=== PATIENT | female | born 1935 | race Caucasian/White ===

== ENCOUNTER 2016-10-09 07:35 | Emergency (ER) | payer OTHER ==
[2016-10-09 07:57] VITALS: BP 179/108; BMI 26.9
--- NOTE | 2016-10-09 08:34 | DR.GENAD ---
HPI - PCP Primary Care Physician: LEIGH ANN GALEANO - Complaint/Symptoms Chief Complaint:: PATIENT STATED SHE HAS BEEN HURTING IN HER RIGHT GROIN AREA FOR 2 WEEKS. HAS SEEN HER DOCTOR YESTERDAY AND HAS A OUT PATIENT SCAN ORDER FOR THIS AFTERNOON. - Nurses notes reviewed Nurses Notes Review: Yes - Source History Provided: Patient, Family Member - Mode of Arrival Mode of Arrival: Ambulatory - Timing Onset of Chief Complaint: 09/25/16 Came on: Gradually - Duration How lon Duration: Days - Severity Severity: Moderate <RODRIGO BROWN - Last Filed: 10/09/16 08:31> - Location Location: RLQ - Modifying Factors Worsens:: movement - Associated Signs and Symptoms Associated Signs and Symptoms: none <LUIS STALLINGS - Last Filed: 10/09/16 13:43> PMH - PMH Past Medical History: Yes Past Medical History: Asthma, Hypertension Past Surgical History: Yes Surgical History: Angioplasty/Stents, Appendectomy, Cholecystectomy, EYE SURGEON Surgery , Ortho Surgery, Tonsillectomy - Family History History of Family Medical Conditions: No - Social History Does patient currently use any type of tobacco product: No Have you used tobacco products in the last 12 months: No Type of Tobacco Use: None Does any household member use tobacco: No Alcohol Use: None Do you use any recreational Drugs:: No Lives With: Alone Lives Where: Home - infectious screening In the last 2 months have you had wt loss of >10#?: NO Have you had fever, night sweats or hemotysis?: No Have you traveled outside the country in the last 6 months?: No Isolation: Standard <RODRIGO BROWN - Last Filed: 10/09/16 08:31> ROS - Review of Systems Constitutional: No Symptoms Reported Eyes: No Symptoms Reported ENTM: No Symptoms Reported Respiratoy: No Symptoms Reported Cardiovascular: No Symptoms Reported Gastrointestinal/Abdominal: Abdominal Pain (RLQ) Genitourinary: No Symptoms Reported Neurological: No Symptoms Reported Musculoskeletal: No Symptoms Reported Integumentary: No Symptoms Reported Hematologic/Lymphatic: No Symptoms Reported Endocrine: No Symptoms Reported Psychiatric: Depression <LUIS STALLINGS - Last Filed: 10/09/16 13:43> PE - General Limitations: No Limitations General Appearance: Alert, In No Apparent Distress - Head Head Exam: Normal Inspection - Eyes Eye exam: Normal Appearance, EOMI. negative: Scleral Icterus, Conjunctival Injection - ENT ENT Exam: Normal Exam, Normal Oropharynx External Ear Exam: Normal External Inspection Nose Exam: Normal Nose Exam Mouth Exam: Normal Inspection Throat Exam: Normal Inspection - Neck Neck Exam: Normal Inspection, Full ROM, Trachea Midline - Chest Chest Inspection: Normal Inspection - Respiratory Respiratory Exam: Normal Lung Sounds Bilat. negative: Accessory Muscle Use, Prolonged Expiratory Phase Respiratory Exam: Bilateral Clear to Auscultation - Cardiovascular Cardiovascular Exam: Tachycardia - Abdominal Exam Abdominal Exam: Normal Inspection, Normal Bowel Sounds, Soft. negative: Distention, Tenderness, Guarding Abdominal Tenderness: RLQ - Extremities Extremities Exam: Normal Inspection, Full ROM. negative: Tenderness - Back Back Exam: Normal Inspection - Neurologic Neurological Exam: Alert, Oriented X3, CN II-XII Intact - Psychiatric Psychiatric Exam: Depressed - Skin Skin Exam: Intact, Normal Color <LUIS STALLINGS - Last Filed: 10/09/16 13:43> - Vital Signs Vitals: Temperature 98.9 F Pulse Rate 103 Respiratory Rate 18 Blood Pressure 179/108 O2 Sat by Pulse Oximetry 100 (RODRIGO BROWN) (LUIS STALLINGS) ROR - Labs Reviewed Result Diagrams: 10/09/16 09:05 10/09/16 09:05 - XRAY XRAY Interpreted by: Radiologist XRAY Findings: CT abdo/pelvis: hiatal hernia,dilated urethra <LUIS STALLINGS - Last Filed: 10/09/16 13:43> - Labs Reviewed Laboratory: WBC 10.0 X10^3/uL (3.6-10.0) 10/09/16 09:05 RBC 4.03 X10^6/uL (3.5-5.4) 10/09/16 09:05 Hgb 13.2 g/dL (12.0-16.0) 10/09/16 09:05 Hct 38.7 % (36.0-47.0) 10/09/16 09:05 MCV 95.9 fL (80.0-100.0) 10/09/16 09:05 MCH 32.7 pg (27.0-34.0) 10/09/16 09:05 MCHC 34.0 g/dL (33.0-35.0) 10/09/16 09:05 RDW 14.3 % (11.6-16.5) 10/09/16 09:05 Plt Count 228 X10^3/uL (150.0-450.0) 10/09/16 09:05 MPV 7.2 fL (7.4-11.0) L 10/09/16 09:05 Neut % 78.9 % (42.0-75.0) H 10/09/16 09:05 Lymph % 12.7 % (21.0-51.0) L 10/09/16 09:05 [place] % 7.3 % (0.0-13.0) 10/09/16 09:05 Eos % 0.6 % (0.9-2.9) L 10/09/16 09:05 Baso % 0.5 % (0.2-1.0) 10/09/16 09:05 Neut # 7.9 x10^3/uL (2.2-4.8) H 10/09/16 09:05 Lymph # 1.3 X10^3/uL (1.3-2.9) 10/09/16 09:05 [place] # 0.7 x10^3/uL (0.3-0.8) 10/09/16 09:05 Eos # 0.1 x10^3/uL (0.0-0.2) 10/09/16 09:05 Baso # 0.0 X10^3/uL (0.0-0.1) 10/09/16 09:05 Absolute Nucleated RBC 0.0 /100WBC 10/09/16 09:05 Sodium 138 mmol/L (136-145) 10/09/16 09:05 Corrected Sodium 138 mmol/L (136-145) 10/09/16 09:05 Potassium 4.6 mmol/L (3.5-5.1) 10/09/16 09:05 Chloride 100 mmol/L (98-107) 10/09/16 09:05 Carbon Dioxide 30.1 mmol/L (21-32) 10/09/16 09:05 BUN 16 mg/dL (7-18) 10/09/16 09:05 Creatinine 0.76 mg/dL (0.55-1.02) 10/09/16 09:05 Est GFR (MDRD) Af Amer > 60 (>60) 10/09/16 09:05 Est GFR (MDRD) Non-Af > 60 (>60) 10/09/16 09:05 Glucose 117 mg/dL (65-99) H 10/09/16 09:05 Calcium 8.9 mg/dL (8.5-10.1) 10/09/16 09:05 Corrected Calcium TNP 10/09/16 09:05 Total Bilirubin 0.40 mg/dL (0.2-1.0) 10/09/16 09:05 AST 23 Units/L (15-37) 10/09/16 09:05 ALT 39 Units/L (12-78) 10/09/16 09:05 Alkaline Phosphatase 72 Units/L (46-116) 10/09/16 09:05 Total Protein 7.2 g/dL (6.4-8.2) 10/09/16 09:05 Albumin 3.7 g/dL (3.4-5.0) 10/09/16 09:05 Globulin 3.5 g/dL (2.5-4.5) 10/09/16 09:05 Albumin/Globulin Ratio 1.1 Ratio (1.1-2.1) 10/09/16 09:05 Amylase 25 Units/L (25-115) 10/09/16 09:05 Lipase 80 Units/L (73-393) 10/09/16 09:05 Specimen Type Clean catch urine 10/09/16 09:31 Urine Color Yellow (YELLOW) 10/09/16 09:31 Urine Appearance Hazy (CLEAR) 10/09/16 09:31 Urine pH 7.0 (5.0 - 8.0) 10/09/16 09:31 Ur Specific [place] 1.010 (1.000-1.030) 10/09/16 09:31 Urine Protein 1+ (NEGATIVE) 10/09/16 09:31 Urine Glucose (UA) Negative (NEGATIVE) 10/09/16 09:31 Urine Ketones Negative (NEGATIVE) 10/09/16 09:31 Urine Occult Blood 1+ (NEGATIVE) 10/09/16 09:31 Urine Nitrite Positive (NEGATIVE) 10/09/16 09:31 Urine Bilirubin Negative (NEGATIVE) 10/09/16 09:31 Urine Urobilinogen Normal (NORMAL) 10/09/16 09:31 Ur Leukocyte Esterase 3+ (NEGATIVE) 10/09/16 09:31 Urine RBC 0-2 /HPF (NEGATIVE) 10/09/16 09:31 Urine WBC 5-10 /HPF (NEGATIVE) 10/09/16 09:31 Ur Squamous Epith Cells Few /HPF (NEGATIVE) 10/09/16 09:31 Urine Bacteria 4+ /HPF (NEGATIVE) 10/09/16 09:31 Ur Culture Indicated? Yes/culture set up 10/09/16 09:31 <RODRIGO BROWN - Last Filed: 10/09/16 08:31> <LUIS STALLINGS - Last Filed: 10/09/16 13:43> - Diagnosis Discharge Problem: Abdominal pain in female UTI (urinary tract infection) Qualifiers: Urinary tract infection type: acute cystitis Hematuria presence: with hematuria Qualified Code(s): N30.01 - Acute cystitis with hematuria - Discharge Plan Condition: Stable Prescriptions: Nitrofurantoin Monohyd Macro [Macrobid] 100 mg PO BID #20 cap - Follow ups/Referrals Follow ups/Referrals: NFD,None [Primary Care Provider] - 3 days - Instructions
[2016-10-09 09:30] LABS: BASOPHILS % (AUTO) 0.5 % (0.2-1.0); EOSINOPHILS # (AUTO) 0.1 x10^3/uL (0.0-0.2); EOSINOPHILS % (AUTO) 0.6 % (0.9-2.9); HEMATOCRIT 38.7 % (36.0-47.0); HEMOGLOBIN 13.2 g/dL (12.0-16.0); LYMPHOCYTES # (AUTO) 1.3 X10^3/uL (1.3-2.9); LYMPHOCYTES % (AUTO) 12.7 % (21.0-51.0); MEAN CORPUSCULAR HEMOGLOBIN 32.7 pg (27.0-34.0); MEAN CORPUSCULAR VOLUME 95.9 fL (80.0-100.0); MEAN PLATELET VOLUME 7.2 fL (7.4-11.0); MONOCYTES # (AUTO) 0.7 x10^3/uL (0.3-0.8); MONOCYTES % (AUTO) 7.3 % (0.0-13.0); NEUTROPHILS # (AUTO) 7.9 x10^3/uL (2.2-4.8); NEUTROPHILS % (AUTO) 78.9 % (42.0-75.0); PLATELET COUNT 228 X10^3/uL (150.0-450.0); RED BLOOD COUNT 4.03 X10^6/uL (3.5-5.4); RED CELL DISTRIBUTION WIDTH 14.3 % (11.6-16.5)
[2016-10-09 09:35] LABS: ALANINE AMINOTRANSFERASE 39 Units/L (12-78); ALBUMIN 3.7 g/dL (3.4-5.0); ALKALINE PHOSPHATASE 72 Units/L (46-116); AMYLASE 25 Units/L (25-115); ASPARTATE AMINO TRANSFERASE 23 Units/L (15-37); BLOOD UREA NITROGEN 16 mg/dL (7-18); CALCIUM 8.9 mg/dL (8.5-10.1); CARBON DIOXIDE 30.1 mmol/L (21-32); CHLORIDE 100 mmol/L (98-107); COR NA(FOR HYPERGLY) 138 mmol/L (136-145); CREATININE 0.76 mg/dL (0.55-1.02); GLUCOSE 117 mg/dL (65-99); LIPASE 80 Units/L (73-393); SODIUM 138 mmol/L (136-145); TOTAL PROTEIN 7.2 g/dL (6.4-8.2); eGFR BLACK RACES > 60 (>60); eGFR NON BLACK RACES > 60 (>60)
[2016-10-09 09:37] LABS: BILIRUBIN,URINE NEGATIVE (NEGATIVE); BLOOD/HEMOGLOBIN,URINE 1+ (NEGATIVE); GLUCOSE, URINE NEGATIVE (NEGATIVE); KETONES,URINE NEGATIVE (NEGATIVE); LEUKOCYTE ESTERASE ,URINE 3+ (NEGATIVE); NITRITES,URINE POSITIVE (NEGATIVE); PROTEIN,URINE 1+ (NEGATIVE); UROBILINOGEN,URINE NORMAL (NORMAL)
[2016-10-09] MEDS ORDERED: ZOFRAN TAB 4 MG PO ONE (09:40)
[2016-10-09 09:42] LABS: APPEARANCE,URINE HAZY (CLEAR); COLOR,URINE YELLOW (YELLOW); RBC,URINE 0-2 /HPF (NEGATIVE)
[2016-10-09 09:43] LABS: BACTERIA,URINE 4+ /HPF (NEGATIVE); SQUAMOUS EPITHELIAL CELL,UR FEW /HPF (NEGATIVE)
[2016-10-09] MEDS ORDERED: ZOFRAN TAB 4 MG ONE (09:59)
[2016-10-09] MEDS ORDERED: NS 100 ML IV 100 ML IV ONE (12:07)
--- NOTE | 2016-10-09 13:32 | CT ---
CT OF THE ABDOMEN AND PELVIS WITH CONTRAST HISTORY: Right lower quadrant and right groin pain Comparison: None Technique: Multiple axial images of the abdomen and pelvis were obtained from the lung bases to the pubic symph ysis follow the administration of IV contrast. Dose reduction techniques including Automated Exposu re Control (AEC) and adjustment of mA and kV were utlized. Findings: The heart is normal in size. There is no pericardial effusion. Lung bases are clear without focal co nsolidation, pleural effusion or pneumothorax. Large hiatal hernia. Liver and spleen are normal in size, enhancement characteristics and contour. No focal lesions. The portal vein is patent. No ductal dilitation. Gallbladder absent. The pancreas is unremarkable. Adren al glands are normal. Kidneys enhance symmetrically without hydronephrosis or nephrolithiasis. No bowel obstruction or inflammation. Diverticulosis without diverticulitis No abnormal appearing me senteric or retroperitoneal lymph nodes. No free fluid or fluid collections. The urethra is markedly dilated and funnels towards the external year urethral sphincter. Uterus and ovaries appear to be present. No free fluid or abnormal pelvic lymph nodes. No aggressive osseous lesions. IMPRESSION: 1. No definite source of patient's right lower quadrant pain is identified. 2. Abnormal morphology of what appears to be a dilated urethra. Recommend correlation with any prior surgeries or evidence of pelvic laxity. Urological consultation on an outpatient basis should be co nsidered. Reported By:
== END 2016-10-09 14:23 | disposition home or self-care (01) ==
LOC: ER 07:35
DX: N30.01 Acute cystitis with hematuria (principal); R10.31 Right lower quadrant pain; B96.1 Klebsiella pneumoniae [K. pneumoniae] as the cause of diseases classified elsewhere
CPT/HCPCS: 36415; 74177; 80053; 81001; 82150; 83690; 85025; 87086; 87088; 87186; 96365; 99283; A4222; S0181